=== PATIENT | female | born 2000 ===

== ENCOUNTER 2024-08-06 08:45 | Inpatient (IN) | payer OTHER ==
[2024-08-14] MEDS ORDERED: PROMETHAZINE HCL 50 MG/ML AMPUL IM PRN (11:00)
[2024-08-14] MEDS ORDERED: MEPERIDINE HCL/PF 50 MG/ML VIAL IM PRN (11:00)
[2024-08-14 14:18] VITALS: BP 124/76
[2024-08-14 14:41] LABS: ABG PH 7.244 (7.35-7.45); ABG pCO2 55.4 mmHg (35-45)
[2024-08-14 14:42] LABS: ABG PO2 27.6 mmHg (80-100); BASE EXCESS -4.7 mmol/l; BICARBONATE 23.4 mmol/l (23-25); SaO2 38.9 %; Tco2 25.1 mmol/l; o2 21 %; puncture site UMBILICAL
[2024-08-14 15:35] VITALS: BP 144/74
[2024-08-14 17:19] LABS: HEMATOCRIT 29.6 % (36.0-45.00); HEMOGLOBIN 9.6 g/dL (12.0-15.00); MEAN CELL VOLUME 84.3 fL (80.00-100.00); MEAN CORPUSCULAR HEMOGLOBIN 27.4 pg (27.00-32.0); MEAN CORPUSCULAR HGB CONC 32.5 g/dl (32.0-36.0); PLATELET COUNT 171 K/uL (150-450); RED BLOOD COUNT 3.52 M/uL (4.00-6.00); RED CELL DISTRIBUTION WIDTH 15.3 % (11.5-14.5)
[2024-08-15 01:15] VITALS: BP 132/78
[2024-08-15 04:25] VITALS: BP 128/70
[2024-08-15] MEDS ORDERED: OxyCODONE HCL/APAP UD (PERCOCET) PO PRN (08:00)
[2024-08-15] MEDS ORDERED: PNV,CALCIUM 72/IRON/FOLIC ACID 1 TAB TABLET PO SCH (09:00)
[2024-08-15] MEDS ORDERED: DOCUSATE SODIUM 100MG CAP PO SCH (09:00)
[2024-08-15] MEDS ORDERED: SIMETHICONE 125 MG CAPSULE PO SCH (09:00)
[2024-08-15 09:14] VITALS: BP 106/67
[2024-08-15 15:29] VITALS: BP 116/73
[2024-08-15 23:44] VITALS: BP 127/77
[2024-08-16 08:01] VITALS: BP 131/80
== END 2024-08-16 14:08 | disposition home or self-care (01) | DRG 788 ==
LOC: LDR 08-14 09:12 → O/R 08-14 10:25 → OB/GYN 08-14 12:21
PROVIDERS: ADMIT Obstetrics & Gynecology; ATTEND Obstetrics & Gynecology
PROC: 10D00Z1 Extraction of Products of Conception, Low, Open Approach (ICD-10-PCS; principal; 2024-08-14)
PROC: 4A1HXCZ Monitoring of Products of Conception, Cardiac Rate, External Approach (ICD-10-PCS; 2024-08-14)
DX: O13.4 Gestational [pregnancy-induced] hypertension without significant proteinuria, complicating childbirth (principal); O99.284 Endocrine, nutritional and metabolic diseases complicating childbirth; E03.9 Hypothyroidism, unspecified; Z37.0 Single live birth; Z3A.39 39 weeks gestation of pregnancy; Z20.822 Contact with and (suspected) exposure to COVID-19